=== PATIENT | female | born 1960 | race Caucasian/White ===

== ENCOUNTER → 2023-04-29 07:27 | Outpatient (REF) | payer BC, SELFPAY | LOC: WDC 07:27 | PROVIDERS: ATTENDING PHYSICIAN Obstetrics & Gynecology | DX: R92.8 Other abnormal and inconclusive findings on diagnostic imaging of breast (principal); Z80.3 Family history of malignant neoplasm of breast; N60.19 Diffuse cystic mastopathy of unspecified breast | CPT/HCPCS: 76642; 77061; 77065 ==

== ENCOUNTER → 2024-06-19 08:24 | Outpatient (REF) | payer BC, SELFPAY | LOC: WDC 08:24 | PROVIDERS: ATTENDING PHYSICIAN Obstetrics & Gynecology; FAMILY PHYSICIAN Family Medicine | DX: Z12.31 Encounter for screening mammogram for malignant neoplasm of breast (principal) | CPT/HCPCS: 77063; 77067 ==

== ENCOUNTER → 2024-11-02 09:38 | Outpatient (REF) | payer BC, SELFPAY | LOC: RAD 09:38 | PROVIDERS: ATTENDING PHYSICIAN Internal Medicine; FAMILY PHYSICIAN Family Medicine | DX: M54.59 Other low back pain (principal); M51.362 Other intervertebral disc degeneration, lumbar region with discogenic back pain and lower extremity pain; M48.062 Spinal stenosis, lumbar region with neurogenic claudication | CPT/HCPCS: 72110 ==

== ENCOUNTER → 2025-01-15 06:39 | Outpatient (REF) | payer BC, SELFPAY | LOC: PAVMRI 06:39 | PROVIDERS: ATTENDING PHYSICIAN Internal Medicine; FAMILY PHYSICIAN Family Medicine | DX: M54.59 Other low back pain (principal); M51.362 Other intervertebral disc degeneration, lumbar region with discogenic back pain and lower extremity pain; M48.062 Spinal stenosis, lumbar region with neurogenic claudication | CPT/HCPCS: 72148 ==